=== PATIENT | female | born 1995 | race Caucasian/White ===

== ENCOUNTER 2017-02-17 16:25 | Emergency (ER) | payer OTHER ==
[~2017-02-17] VITALS: Ht 167.6 cm; Wt 79.1 kg
[2017-02-17] MEDS ORDERED: RANI150T PO (16:40)
[2017-02-17] MEDS ORDERED: PRENTAB55 PO (16:40)
[2017-02-17] MEDS ORDERED: ZOFR20TA PO (16:40)
[2017-02-17] MEDS ORDERED: NS 1,000 ML IV ONE (17:15)
[2017-02-17] MEDS ORDERED: ACETAMINOPHEN 325 MG TAB PO ONE (17:30)
[2017-02-17 17:39] LABS: YEAST LIKE CELL URINE AUTO LARGE
--- NOTE | 2017-02-17 18:15 | REP ---
1ST TRIMESTER ULTRASOUND: HISTORY: Pelvic pain. A single intrauterine is present. [place]-rump length is 7.2 cm corresponding to a gestational age of 13 weeks 2 days. There is no subchorionic hemorrhage. The adnexal and cul-de-sac regions are normal in appearance. IMPRESSION: A single intrauterine is present with a gestational age of 13 weeks 2 days. A repeat examination in 19-20 weeks is recommended for further evaluation. Signed by Alfredo Conde MD 02/17/2017 06:22 P
[2017-02-17] MEDS ORDERED: MACR100C43 PO (18:38)
[2017-02-17 18:52] VITALS: BP 106/63
== END 2017-02-17 18:55 | disposition home or self-care (01) ==
LOC: M ED 16:25
DX: O23.41 Unspecified infection of urinary tract in pregnancy, first trimester (principal); O99.89 Other specified diseases and conditions complicating pregnancy, childbirth and the puerperium; N89.8 Other specified noninflammatory disorders of vagina; Z3A.12 12 weeks gestation of pregnancy

== ENCOUNTER 2017-05-18 08:51 | Outpatient (CLI) | payer OTHER ==
[2017-05-18 10:05] LABS: AMORPHOUS SEDIMENT MODERATE (NEGATIVE); APPEARANCE, URINE CLOUDY (CLEAR); BACTERIA, URINE AUTO 1+ (NEGATIVE); BILIRUBIN, URINE AUTO NEGATIVE (NEGATIVE); BLOOD, URINE BLOOD NEGATIVE (NEGATIVE); COLOR, URINE YELLOW (YELLOW); GLUCOSE, URINE (UA) AUTO NEGATIVE (NEGATIVE); KETONE, URINE AUTO 1+ mg/dL (NEGATIVE); LEUKOCYTE ESTERASE, URINE AUTO TRACE (NEGATIVE); MUCUS, URINE SMALL (NEGATIVE); NITRITE, URINE AUTO NEGATIVE (NEGATIVE); PROTEIN, URINE AUTO 1+ mg/dL (NEGATIVE); RBC, URINE AUTO 2 /HPF (0-3); SPECIFIC GRAVITY URINE AUTO 1.019 (1.002-1.035); SQUAMOUS EPITHELIAL CELL UR AU 9 /HPF (0-6); TRANSITIONAL EPITHELIAL AUTO 1 /HPF; WBC, URINE AUTO 7 /HPF (0-3)
[2017-05-18] MEDS: FIORICET TAB PO (10:23)
== END 2017-05-18 11:45 | disposition home or self-care (01) ==
LOC: M LDO 08:51
DX: O26.892 Other specified pregnancy related conditions, second trimester (principal); Z3A.25 25 weeks gestation of pregnancy; G43.909 Migraine, unspecified, not intractable, without status migrainosus; O99.352 Diseases of the nervous system complicating pregnancy, second trimester
CPT/HCPCS: 59025

== ENCOUNTER 2017-05-19 12:06 | Inpatient (IN) | payer OTHER ==
[2017-05-19 13:56] LABS: APPEARANCE, URINE CLEAR (CLEAR); BACTERIA, URINE AUTO NEGATIVE (NEGATIVE); BILIRUBIN, URINE AUTO NEGATIVE (NEGATIVE); BLOOD, URINE BLOOD 1+ (NEGATIVE); COLOR, URINE YELLOW (YELLOW); GLUCOSE, URINE (UA) AUTO NEGATIVE (NEGATIVE); KETONE, URINE AUTO 1+ mg/dL (NEGATIVE); LEUKOCYTE ESTERASE, URINE AUTO NEGATIVE (NEGATIVE); NITRITE, URINE AUTO NEGATIVE (NEGATIVE); PROTEIN, URINE AUTO NEGATIVE (NEGATIVE); RBC, URINE AUTO 1 /HPF (0-3); SPECIFIC GRAVITY URINE AUTO 1.005 (1.002-1.035); SQUAMOUS EPITHELIAL CELL UR AU 1 /HPF (0-6); UROBILINOGEN, URINE AUTO 0.2 mg/dL (0.0-2.0); WBC, URINE AUTO 1 /HPF (0-3)
[2017-05-19] MEDS ORDERED: NS 1,000 ML IV (19:20)
[2017-05-19] MEDS ORDERED: LR 1,000 ML IV (19:20)
[2017-05-19] MEDS ORDERED: D5W 1,000 ML IV (19:30)
[2017-05-19] MEDS: ONDANSETRON 4MG/2ML VIAL (J2405) IV (20:07)
[2017-05-19 20:09] LABS: HEMATOCRIT 32.1 % (36.0-47.0); HEMOGLOBIN 11.5 g/dl (12.0-16.0); MEAN CORPUSCULAR HEMOGLOBIN 30.5 pg (27.0-33.0); MEAN CORPUSCULAR HGB CONC 35.8 g/dl (32.0-36.5); MEAN CORPUSCULAR VOLUME 85.1 fl (80.0-96.0); PLATELET COUNT, AUTOMATED 306 10^3/uL (150-450); RED BLOOD COUNT 3.77 10^6/uL (4.00-5.40); RED CELL DISTRIBUTION WIDTH 13.4 % (11.5-14.5); WHITE BLOOD COUNT 16.7 10^3/uL (4.0-10.0)
[2017-05-19] MEDS: MORPHINE 2 MG/ML 1ML SYRINGE IV (20:09)
[2017-05-19] MEDS ORDERED: D5/0.9%NACL 1000ML IV (20:15)
[2017-05-19] MEDS: D5W/0.9% SODIUM CHLORIDE 1,000 ML IV (20:23)
[2017-05-19 20:25] LABS: AMPHETAMINES URINE REFLEX NEGATIVE (NEGATIVE); BENZODIAZEPINES URINE REFLEX NEGATIVE (NEGATIVE); CANNABINOIDS URINE REFLEX NEGATIVE (NEGATIVE); COCAINE METABOLITE URINE REFLE NEGATIVE (NEGATIVE); METHADONE URINE REFLEX NEGATIVE (NEGATIVE); OPIATES URINE REFLEX NEGATIVE (NEGATIVE); PHENCYCLIDINE URINE REFLEX NEGATIVE (NEGATIVE)
[2017-05-19 20:39] LABS: BARBITURATES URINE REFLEX POSITIVE (NEGATIVE)
[2017-05-19] MEDS: CEFTRIAXONE SOD 1 GM in APPROPRIATE DILUENT 1 EA IV (21:54)
[2017-05-20] MEDS: ONDANSETRON 4MG/2ML VIAL (J2405) IV ×7 (00:04→23:30)
[2017-05-20] MEDS: MORPHINE 2 MG/ML 1ML SYRINGE IV ×3 (00:05→08:43)
[2017-05-20] MEDS: D5W/0.9% SODIUM CHLORIDE 1,000 ML IV ×3 (03:58→20:11)
[2017-05-20 08:37] LABS: BASO % 0.2 % (0.0-1.0); EOS # 0.1 10^3/uL (0.0-0.50); EOS % 0.8 % (0.0-3.0); HEMATOCRIT 28.8 % (36.0-47.0); HEMOGLOBIN 9.9 g/dl (12.0-16.0); IMMATURE GRANULOCYTE # 0.1 10^3/uL (0-0); IMMATURE GRANULOCYTE % 0.7 % (0-0); LYMPH # 1.6 10^3/uL (1.5-6.5); LYMPH % 13.2 % (24.0-44.0); MEAN CORPUSCULAR HEMOGLOBIN 29.7 pg (27.0-33.0); MEAN CORPUSCULAR HGB CONC 34.4 g/dl (32.0-36.5); MEAN CORPUSCULAR VOLUME 86.5 fl (80.0-96.0); MONO # 0.9 10^3/uL (0.0-0.8); MONO % 7.7 % (0.0-5.0); NEUTROPHILS # 9.4 10^3/uL (1.8-7.7); NEUTROPHILS % 77.4 % (36.0-66.0); PLATELET COUNT, AUTOMATED 253 10^3/uL (150-450); RED BLOOD COUNT 3.33 10^6/uL (4.00-5.40); RED CELL DISTRIBUTION WIDTH 13.3 % (11.5-14.5); WHITE BLOOD COUNT 12.2 10^3/uL (4.0-10.0)
[2017-05-20 09:09] LABS: ALBUMIN 2.3 GM/DL (3.2-5.2); ALBUMIN/GLOBULIN RATIO 0.74 (1.00-1.93); ALKALINE PHOSPHATASE 155 U/L (45-117); ALT/SGPT 20 U/L (12-78); ANION GAP 9 MEQ/L (8-16); AST/SGOT 15 U/L (7-37); BILIRUBIN,TOTAL 0.4 MG/DL (0.2-1.0); BLOOD UREA NITROGEN 6 MG/DL (7-18); CALCIUM LEVEL 7.8 MG/DL (8.5-10.1); CARBON DIOXIDE LEVEL 24 MEQ/L (21-32); CHLORIDE LEVEL 108 MEQ/L (98-107); CREATININE FOR GFR 0.39 MG/DL (0.55-1.02); GLOMERULAR FILTRATION RATE > 60.0 (>60); GLUCOSE, FASTING 106 MG/DL (70-105); POTASSIUM SERUM 3.2 MEQ/L (3.5-5.1); SODIUM LEVEL 141 MEQ/L (136-145); TOTAL PROTEIN 5.4 GM/DL (6.4-8.2)
[2017-05-20] MEDS: TAMSULOSIN 0.4 MG CAP PO (12:47)
[2017-05-20] MEDS: PRENATAL VITAMINS CHEWABLE TABLET PO (12:47)
[2017-05-20] MEDS: PERCOCET 5MG/325MG TAB PO ×3 (12:48→21:20)
[2017-05-20] MEDS: CYPROHEPTADINE 4 MG TAB PO (18:25)
[2017-05-20] MEDS: CEFTRIAXONE SOD 1 GM in APPROPRIATE DILUENT 1 EA IV (21:19)
[2017-05-20] MEDS: FIORICET TAB PO (22:34)
[2017-05-21] MEDS: PERCOCET 5MG/325MG TAB PO ×4 (01:38→20:36)
[2017-05-21] MEDS: ONDANSETRON 4MG/2ML VIAL (J2405) IV (03:30)
[2017-05-21] MEDS: D5W/0.9% SODIUM CHLORIDE 1,000 ML IV ×3 (03:55→20:35)
[2017-05-21 07:30] LABS: HEMATOCRIT 27.8 % (36.0-47.0); HEMOGLOBIN 9.4 g/dl (12.0-16.0); MEAN CORPUSCULAR HEMOGLOBIN 29.9 pg (27.0-33.0); MEAN CORPUSCULAR HGB CONC 33.8 g/dl (32.0-36.5); MEAN CORPUSCULAR VOLUME 88.5 fl (80.0-96.0); PLATELET COUNT, AUTOMATED 263 10^3/uL (150-450); RED BLOOD COUNT 3.14 10^6/uL (4.00-5.40); RED CELL DISTRIBUTION WIDTH 13.6 % (11.5-14.5); WHITE BLOOD COUNT 10.1 10^3/uL (4.0-10.0)
[2017-05-21] MEDS ORDERED: ONDANSETRON 4MG/2ML VIAL (J2405) IV (07:30)
[2017-05-21] MEDS: PRENATAL VITAMINS CHEWABLE TABLET PO (08:06)
[2017-05-21] MEDS: TAMSULOSIN 0.4 MG CAP PO (08:07)
[2017-05-21] MEDS: CYPROHEPTADINE 4 MG TAB PO (16:59)
[2017-05-21] MEDS: CEFTRIAXONE SOD 1 GM in APPROPRIATE DILUENT 1 EA IV (20:35)
[2017-05-22] MEDS: PERCOCET 5MG/325MG TAB PO ×3 (00:36→10:05)
[2017-05-22] MEDS: D5W/0.9% SODIUM CHLORIDE 1,000 ML IV (04:30)
[2017-05-22] MEDS: PRENATAL VITAMINS CHEWABLE TABLET PO (08:47)
[2017-05-22] MEDS: TAMSULOSIN 0.4 MG CAP PO (08:48)
[2017-05-24 14:11] LABS: Amobarbital Negative (Cutoff=200); Barbiturates Positive (.); Butalbital Positive (.); GC Butalbital 1374 ng/mL (Cutoff=200); Pentobarbital Negative (Cutoff=200); Secobarbital Negative (Cutoff=200)
== END 2017-05-22 14:38 | disposition home or self-care (01) | DRG 781 ==
LOC: M LDO 12:06 → M OBS 05-20 04:00 → M LDO 05-20 16:01 → M OBS 05-20 09:56
DX: O23.02 Infections of kidney in pregnancy, second trimester (principal); N12 Tubulo-interstitial nephritis, not specified as acute or chronic; N13.1 Hydronephrosis with ureteral stricture, not elsewhere classified; Z3A.25 25 weeks gestation of pregnancy; Z90.49 Acquired absence of other specified parts of digestive tract; G43.909 Migraine, unspecified, not intractable, without status migrainosus; B95.2 Enterococcus as the cause of diseases classified elsewhere; O99.352 Diseases of the nervous system complicating pregnancy, second trimester; Z79.899 Other long term (current) drug therapy

== ENCOUNTER 2017-08-18 13:34 | Inpatient (IN) | payer OTHER ==
[2017-08-18 15:06] LABS: HEMATOCRIT 35.3 % (36.0-47.0); HEMOGLOBIN 12.5 g/dl (12.0-15.5); MEAN CORPUSCULAR HEMOGLOBIN 30.3 pg (27.0-33.0); MEAN CORPUSCULAR HGB CONC 35.4 g/dl (32.0-36.5); MEAN CORPUSCULAR VOLUME 85.5 fl (80.0-96.0); PLATELET COUNT, AUTOMATED 220 10^3/uL (150-450); RED BLOOD COUNT 4.13 10^6/uL (4.00-5.40); RED CELL DISTRIBUTION WIDTH 13.7 % (11.5-14.5); WHITE BLOOD COUNT 12.9 10^3/uL (4.0-10.0)
[2017-08-18 15:41] LABS: ALBUMIN 2.6 GM/DL (3.2-5.2); ALBUMIN/GLOBULIN RATIO 0.74 (1.00-1.93); ALKALINE PHOSPHATASE 287 U/L (45-117); ALT/SGPT 12 U/L (12-78); ANION GAP 10 MEQ/L (8-16); AST/SGOT 20 U/L (7-37); BILIRUBIN,TOTAL 0.3 MG/DL (0.2-1.0); BLOOD UREA NITROGEN 4 MG/DL (7-18); CALCIUM LEVEL 8.5 MG/DL (8.5-10.1); CARBON DIOXIDE LEVEL 21 MEQ/L (21-32); CHLORIDE LEVEL 111 MEQ/L (98-107); CREATININE FOR GFR 0.43 MG/DL (0.55-1.30); GLOMERULAR FILTRATION RATE > 60.0 (>60); GLUCOSE, FASTING 75 MG/DL (70-100); POTASSIUM SERUM 3.8 MEQ/L (3.5-5.1); SODIUM LEVEL 142 MEQ/L (136-145); TOTAL PROTEIN 6.1 GM/DL (6.4-8.2)
[2017-08-18] MEDS: miSOPROStol 50 MCG 1/2 TAB (S0191) PO ×2 (15:55→20:13)
[2017-08-18] MEDS ORDERED: ACETAMINOPHEN TAB 650MG DOSE (2X325MG) PO (20:15)
[2017-08-19] MEDS: miSOPROStol 50 MCG 1/2 TAB (S0191) PO (00:15)
[2017-08-19] MEDS ORDERED: OXYTOCIN 30 UNITS IN 0.9% NaCl 500ML IV BAG (J2590) As Ordered (04:51)
[2017-08-19] MEDS: OXYTOCIN DRIP 30 UNITS in APPROPRIATE DILUENT 1 EA IV ×2 (05:09→19:34)
[2017-08-19] MEDS: LR 1,000 ML IV (05:10)
[2017-08-19] MEDS ORDERED: FENTANYL 2MCG/ML ROPIVACAINE 0.2% IN 0.9% NACL 200ML IVBAG As Ordered (10:04)
[2017-08-19] MEDS ORDERED: NALOXONE INJ 0.4 MG/1 ML VIAL (J2310) IV (11:45)
[2017-08-19] MEDS ORDERED: EPIDURAL COMMENT XX (11:45)
[2017-08-19] MEDS ORDERED: ePHEDrine SULFATE 25 MG/5 ML(5MG/ML) SYRINGE IV (11:45)
[2017-08-19] MEDS ORDERED: REFRIGERATOR IV KEYS XX (11:45)
[2017-08-19] MEDS ORDERED: FENTANYL/ROPIVACAINE/NACL BAG 200 ML EPIDURAL (11:45)
[2017-08-19] MEDS ORDERED: ONDANSETRON 4MG/2ML VIAL (J2405) IV (11:45)
[2017-08-19] MEDS ORDERED: EPIDURAL/PCA KEYS XX (11:45)
[2017-08-19] MEDS ORDERED: diphenhydrAMINE INJ 50MG/ML VIAL (J1200) IV (11:45)
[2017-08-19] MEDS ORDERED: LACTATED RINGER'S 1000 ML IV (11:45)
[2017-08-19] MEDS: ACETAMINOPHEN TAB 650MG DOSE (2X325MG) PO (19:32)
[2017-08-19] MEDS ORDERED: DIBUCAINE 1% OINTMENT 30GM TOP (19:45)
[2017-08-19] MEDS ORDERED: DOCUSATE SODIUM 100 MG CAP PO (19:45)
[2017-08-20] MEDS: MEASLES,MUMPS,RUBELLA VACCINE INJ (MMR-II) (90707) SC (07:08)
[2017-08-20] MEDS: RHOGAM 300 MCG (1500 IU) INJ (J2790) IM (07:08)
[2017-08-20] MEDS: LR 1,000 ML IV (07:09)
[2017-08-20 07:47] LABS: HEMATOCRIT 30.9 % (36.0-47.0); HEMOGLOBIN 10.7 g/dl (12.0-15.5); MEAN CORPUSCULAR HEMOGLOBIN 30.1 pg (27.0-33.0); MEAN CORPUSCULAR HGB CONC 34.6 g/dl (32.0-36.5); PLATELET COUNT, AUTOMATED 187 10^3/uL (150-450); RED BLOOD COUNT 3.55 10^6/uL (4.00-5.40); RED CELL DISTRIBUTION WIDTH 13.8 % (11.5-14.5); WHITE BLOOD COUNT 16.2 10^3/uL (4.0-10.0)
[2017-08-20 08:12] LABS: ALBUMIN/GLOBULIN RATIO 0.57 (1.00-1.93); ALKALINE PHOSPHATASE 223 U/L (45-117); ALT/SGPT 13 U/L (12-78); ANION GAP 7 MEQ/L (8-16); AST/SGOT 23 U/L (7-37); BILIRUBIN,TOTAL 0.4 MG/DL (0.2-1.0); BLOOD UREA NITROGEN 4 MG/DL (7-18); CALCIUM LEVEL 8.4 MG/DL (8.5-10.1); CARBON DIOXIDE LEVEL 25 MEQ/L (21-32); CHLORIDE LEVEL 110 MEQ/L (98-107); CREATININE FOR GFR 0.46 MG/DL (0.55-1.30); GLOMERULAR FILTRATION RATE > 60.0 (>60); GLUCOSE, FASTING 92 MG/DL (70-100); POTASSIUM SERUM 3.6 MEQ/L (3.5-5.1); SODIUM LEVEL 142 MEQ/L (136-145); TOTAL PROTEIN 5.5 GM/DL (6.4-8.2)
[2017-08-20] MEDS: IBUPROFEN 800 MG TAB PO (08:23)
[2017-08-20] MEDS: PRENATAL VITAMINS CHEWABLE TABLET PO (08:23)
[2017-08-21] MEDS: IBUPROFEN 800 MG TAB PO (00:37)
[2017-08-21] MEDS: PRENATAL VITAMINS CHEWABLE TABLET PO (08:48)
== END 2017-08-21 10:40 | disposition home or self-care (01) | DRG 775 ==
LOC: M LDI 13:34 → M OBS 08-19 21:38
PROC: 3E0P7GC Introduction of Other Therapeutic Substance into Female Reproductive, Via Natural or Artificial Opening (ICD-10-PCS; 2017-08-18)
PROC: 10E0XZZ Delivery of Products of Conception, External Approach (ICD-10-PCS; principal; 2017-08-19)
PROC: 0HQ9XZZ Repair Perineum Skin, External Approach (ICD-10-PCS; 2017-08-19)
DX: O14.04 Mild to moderate pre-eclampsia, complicating childbirth (principal); O99.824 Streptococcus B carrier state complicating childbirth; Z3A.38 38 weeks gestation of pregnancy; O70.0 First degree perineal laceration during delivery; Z37.0 Single live birth

== ENCOUNTER → 2017-10-07 | Outpatient (CLI) | payer OTHER | LOC: M RAD 12:03 | DX: N63.21 Unspecified lump in the left breast, upper outer quadrant (principal); N63.22 Unspecified lump in the left breast, upper inner quadrant ==

== ENCOUNTER → 2019-01-19 | Outpatient (REF) | payer OTHER ==
[~2019-01-19] MED LIST: FIOR1CAP PO; MACR100C43 PO; MAPA500T2 PO; MOTR200T44 PO; OXYC1TAB23 PO; PRENTAB55 PO; PRENTAB9 PO; RANI150T PO; TYLE325T5 PO; ZANT150T15 PO; ZOFR4TAB16 PO; ZOFR8TAB22 PO
== END ==
LOC: M LAB REF 17:54
PROVIDERS: ATTEND Physician Assistant
DX: N39.0 Urinary tract infection, site not specified (principal)

== ENCOUNTER → 2019-04-11 | Outpatient (REF) | payer OTHER | LOC: M LAB REF 17:27 | PROVIDERS: ATTEND Physician Assistant | DX: Z97.5 Presence of (intrauterine) contraceptive device (principal); R10.2 Pelvic and perineal pain ==

== ENCOUNTER → 2019-06-20 | Outpatient (CLI) | payer OTHER ==
--- NOTE | 2019-06-20 17:17 | REPVR ---
PROCEDURE INFORMATION: Exam: CT Maxillofacial Without Contrast, Sinus Exam date and time: 06/20/2019 4:51 PM Age: 23 years old Clinical indication: Sinusitis; Type not specified; Additional info: Devaited nasal septum recurrent sinusitis TECHNIQUE: Imaging protocol: CT Maxillofacial without contrast. Focus on the sinuses. Axial and coronal reformatted images were created and reviewed. Radiation optimization: All CT scans at this facility use at least one of these dose optimization techniques: automated exposure control; mA and/or kV adjustment per patient size (includes targeted exams where dose is matched to clinical indication); or iterative reconstruction. COMPARISON: No relevant prior studies available. FINDINGS: Frontal sinuses: Normal. No air-fluid levels. Ethmoid air cells: Mild ethmoid mucosal thickening. No air-fluid levels. Sphenoid sinuses: Normal. No air-fluid levels. Maxillary sinuses: Mild maxillary sinus mucosal thickening. No air-fluid levels. Mild narrowing of the gnodq-[id number]-cqqi-left ostiomeatal units. Orbits: Orbits are normal. Globes are unremarkable. Nasal cavity/Septum: Subtle sigmoid nasal septal deviation. Soft tissues: Unremarkable. Bones/joints: Unremarkable. IMPRESSION: 1. No acute sinusitis. 2. Additional findings, as above. Electronically signed by: Frandy Chang On 06/20/2019 17:16:41 PM
== END ==
LOC: M RAD 16:37
PROVIDERS: ATTEND Specialist
DX: J34.2 Deviated nasal septum (principal)